=== PATIENT | male | born 1970 | race Caucasian/White ===

== ENCOUNTER 2018-06-07 18:35 | Emergency (ER) | payer BC, OTHER ==
[2018-06-07] MEDS ORDERED: Cyclobenzaprine 10 MG Tab PO ONE (18:36)
--- NOTE | 2018-06-07 18:56 | EDM.PDOC ---
ED HPI GENERAL MEDICAL PROBLEM - General Chief Complaint: Trauma Stated Complaint: fall off roof Time Seen by Provider: 06/07/18 18:50 Source of Information: Reports: Patient History Limitations: Reports: No Limitations - History of Present Illness INITIAL COMMENTS - FREE TEXT/NARRATIVE: Deshawn is a 47 year old male who arrives ambulatory to the ED via private vehicle after falling from a ladder. He reports he was on the upper step of the ladder, near his house roof line, shoveling snow from his roof, when he slipped and fell. He reports he landed on his neck/left side of his back on the deck below. Estimates a 7 foot fall. Trauma code was initiated by nursing staff just prior to my arrival to the ED. He is alert, oriented and ambulatory at time of presentation. GCS 15. Patient and report immediately after falling, patient was "dazed." He reports he felt off balance and "stunned." Does report that he had neck pain initially, as well as left elbow pain. C-collar was applied upon arrival to the ED. Denies any chest pain, lower extremity pain, shortness of breath, abdominal pain, N/V/D. Patient was exposed. Patient is maintaining airway. Taking in full complete sentences. No bleeding. Pulses 2+ throughout. Extremities warm with normal cap refill. Does have small abrasion to right forearm, but no other abnormalities upon exposed examination. He has tenderness to palpation of neck and left elbow. No tenderness to palpation elsewhere. Pelvis is stable. No pain to LE. Onset: Today, Sudden Onset Date: 06/07/18 Onset Time: 18:15 Duration: Constant Location: Reports: Neck, Upper Extremity, Left Quality: Reports: Ache Associated Symptoms: Reports: No Other Symptoms. Denies: Confusion, Chest Pain , Cough, cough w sputum, Diaphoresis, Fever/Chills, Headaches, Loss of Appetite , Malaise, Nausea/Vomiting, Rash, Seizure, Shortness of Breath, Syncope, Weakness Neck Pain Score (Numeric/FACES): 3 - Related Data Allergies Allergy/AdvReac Type Severity Reaction Status Date / Time No Known Allergies Allergy Verified 06/07/18 19:22 Home Meds: Home Meds Cyclobenzaprine [Flexeril] 10 mg PO TID PRN #20 tab 06/07/18 [Rx] Review of Systems - Review of Systems Review Of Systems: See Below Constitutional: Reports: No Symptoms. Denies: Chills, Diaphoresis, Fever, Weakness Eyes: Reports: No Symptoms. Denies: Blurred Vision, Decreased Acuity, Pain, Tunnel Vision, Vision Change Ears: Reports: No Symptoms. Denies: Dizziness, Pain, Tinnitus, Bloody Discharge , Clear Discharge, Serosanguinous Discharge Nose: Reports: No Symptoms. Denies: Clots, Congestion, Epistaxis, Pain Mouth/Throat: Reports: No Symptoms. Denies: Bleeding, Lip Swelling, Tongue Swelling, Loose Teeth Respiratory: Reports: No Symptoms. Denies: Shortness of Breath, Wheezing, Pleuritic Chest Pain, Cough, Sputum, Hemoptysis Cardiovascular: Reports: No Symptoms. Denies: Chest Pain, Edema, Lightheadedness, Palpitations, Syncope GI/Abdominal: Reports: No Symptoms. Denies: Abdominal Pain, Bloody Stool, Diarrhea, Hematemesis, Nausea, Vomiting Genitourinary: Reports: No Symptoms. Denies: Hematuria Musculoskeletal: Reports: Neck Pain, Arm Pain, Back Pain, Joint Pain (left elbow ), Muscle Stiffness Skin: Reports: No Symptoms. Denies: Bruising, Wound Neurological: Reports: Headache. Denies: Confusion, Dizziness, Numbness, Paresthesia, Syncope, Tingling, Tremors, Weakness, Change in Speech, Gait Disturbance Psychiatric: Reports: No Symptoms ED EXAM, GENERAL - Physical Exam Exam: See Below Exam Limited By: No Limitations General Appearance: Alert, WD/WN, No Apparent Distress Eye Exam: Bilateral Eye: EOMI, Normal Fundi, Normal Inspection, PERRL Ears: Normal External Exam, Normal Canal, Hearing Grossly Normal, Normal TMs Nose: Normal Inspection, Normal Mucosa, No Blood Throat/Mouth: Normal Inspection, Normal Lips, Normal Teeth, Normal Gums, Normal Oropharynx, Normal Voice, No Airway Compromise Head: Atraumatic, Normocephalic Neck: Supple, Full Range of Motion, Tender Lateral (muscle tenderness bilaterally ), Other Respiratory/Chest: No Respiratory Distress, Lungs Clear, Normal Breath Sounds, No Accessory Muscle Use, Chest Non-Tender Cardiovascular: Normal Peripheral Pulses, Regular Rate, Rhythm, No Edema, No Gallop, No JVD, No Murmur, No Rub Peripheral Pulses: 2+: Radial (L), Radial (R), Posterior Tibial (L), Posterior Tibial (R), Dorsalis Pedis (L), Dorsalis Pedis (R) GI/Abdominal: Normal Bowel Sounds, Soft, Non-Tender, No Organomegaly, No Distention, No Abnormal Bruit, No Mass Back Exam: Full Range of Motion, Muscle Spasm (mid back). No: Paraspinal Tenderness, Vertebral Tenderness Extremities: Normal Range of Motion, No Pedal Edema, Normal Capillary Refill, Arm Pain (left elbow, tenderness to palpation of lateral epicondyle ). No: Joint Swelling, Leg Pain, Increased Warmth, Redness Neurological: Alert, Oriented, CN II-XII Intact, Normal Cognition, Normal Gait, Normal Reflexes, No Motor/Sensory Deficits Psychiatric: Normal Affect, Normal Mood Skin Exam: Warm, Dry, Other (superficial abrasion to right elbow no tenderness or bleeding) Lymphatic: No Adenopathy Course - Vital Signs Last Recorded V/S: Last Vital Signs Temp 97.9 F 06/07/18 19:32 Pulse 68 06/07/18 19:32 Resp 14 06/07/18 19:32 BP 132/82 06/07/18 19:32 Pulse Ox 98 06/07/18 19:32 - Orders/Labs/Meds Labs: Laboratory Tests 06/07/18 06/07/18 Range/Units 18:52 18:52 WBC 6.8 (5.0-10.0) 10^3/uL RBC 4.94 (4.50-6.00) 10^6/uL Hgb 15.0 (14.0-18.0) g/dL Hct 44.3 (40.0-54.0) % MCV 89.7 (82.0-94.0) fL MCH 30.4 (27.0-32.0) pg MCHC 33.9 (33.0-38.0) g/dL RDW Coeff of Reina 11.9 (11.0-15.0) % Plt Count 224 (150-400) 10^3/uL Neut % (Auto) 58.6 (35-85) % Lymph % (Auto) 32.7 (10-55) % [place] % (Auto) 7.5 (0-16) % Eos % (Auto) 0.9 (0-5) % Baso % (Auto) 0.3 (0-3) % Neut # (Auto) 3.99 (1.80-7.00) 10^3/uL Lymph # (Auto) 2.23 (1.00-4.80) 10^3/uL [place] # (Auto) 0.51 (0.00-0.80) 10^3/uL Eos # (Auto) 0.06 (0.00-0.45) 10^3/uL Baso # (Auto) 0.02 10^3/uL Sodium 140 (136-145) mEq/L Potassium 4.2 (3.5-5.0) mEq/L Chloride 103 (98-106) mEq/L Carbon Dioxide 29 (21-32) mmol/L BUN 15 (7-18) mg/dL Creatinine 1.3 (0.7-1.3) mg/dL Est Cr Clr Drug Dosing TNP Estimated GFR (MDRD) 59 L (>=60) mL/min Glucose 118 H (75-99) mg/dL Calcium 8.7 (8.4-10.1) mg/dL Total Bilirubin 1.5 H (0.0-1.0) mg/dL AST 17 (15-37) U/L ALT 33 (12-78) U/L Alkaline Phosphatase 62 (46-116) U/L Total Protein 7.3 (6.4-8.2) g/dL Albumin 4.1 (3.4-5.0) g/dL Meds: Medications Discontinued Medications Generic Name Dose Route Start Last Admin Trade Name Freq PRN Reason Stop Dose Admin Cyclobenzaprine HCl 1 packet 06/07/18 19:49 06/07/18 19:56 Take Home: Cyclobenzaprine 10 Mg, 4 Tab Pack PO 06/07/18 19:50 1 packet ONETIME ONE Administration Cyclobenzaprine HCl 40 mg 06/07/18 18:36 Flexeril PO 06/07/18 18:37 .STK-MED ONE Diphtheria/Tetanus/Acell Pertussis 0.5 ml 06/07/18 19:42 06/07/18 19:52 Adacel IM 06/07/18 19:43 0.5 ml .ONCE ONE Administration - Radiology Interpretation Free Text/Narrative:: Head and cervical spine CT negative for acute findings. CT Results Date: 06/07/18 CT Results Time: 19:36 - Re-Assessments/Exams Free Text/Narrative Re-Assessment/Exam: Nursing staff attempted PIV start without success. Patient denies significant pain. Labs stable. No need for PIV at this time. No imaging of pelvis warranted, as patient is ambulatory without difficulty or pain. Pelvis is stable and patient has no pain to palpation. CT of head and cervical spine negative. Chest xray negative. Elbow xray shows enthesophyte of dorsum olecranon & left lateral projection. Cervical collar removed. Patient reports mild aching of his neck. Feels muscular related. He has no vertebral tenderness. Reports he feels stiff. Labs all stable. Patient has remained alert and oriented throughout ED stay. GCS 15. VSS. Will discharge home. Departure - Departure Time of Disposition: 19:57 Disposition: Home, Self-Care 01 Condition: Good Clinical Impression: Muscle strain of upper back, Elbow enthesopathy Concussion Qualifiers: Encounter type: initial encounter Loss of consciousness presence/duration: without LOC Qualified Code(s): S06.0X0A - Concussion without loss of consciousness, initial encounter Acute strain of neck muscle Qualifiers: Encounter type: initial encounter Qualified Code(s): S16.1XXA - Strain of muscle, fascia and tendon at neck level, initial encounter - Discharge Information *PRESCRIPTION DRUG MONITORING PROGRAM REVIEWED*: Not Applicable *COPY OF PRESCRIPTION DRUG MONITORING REPORT IN PATIENT MULU: Not Applicable Prescriptions: Cyclobenzaprine [Flexeril] 10 mg PO TID PRN #20 tab PRN Reason: Pain Instructions: Concussion, Adult, [id number], Muscle Strain, [id number] Referrals: PCP,None [Primary Care Provider] - Forms: ED Department Discharge Additional Instructions: 1) Alternate ice and heat to areas of discomfort 2) Rest and take it easy the next few days. Will likely be more sore/stiff tomorrow and the days following. Recommend low stimuli environment for next 72 hours. 3) Alternate Tylenol and ibuprofen as needed for pain 4) Flexeril as needed for muscle spasm/stiffness. This medication can make you drowsy. 5) Follow up if symptoms worsen or do not improve 6) Return to ED for any emergent needs
[2018-06-07 19:09] LABS: CHLORIDE,CL 103 mEq/L (98-106); SODIUM,NA 140 mEq/L (136-145)
[2018-06-07] MEDS ORDERED: Diphtheria,Pertussis(Acell),Tetanus Vaccine 0.5 ML Syringe IM ONE (19:42)
[2018-06-07] MEDS ORDERED: Take Home: Cyclobenzaprine 10 MG Tab, 4 Tab Pack PO ONE (19:49)
== END 2018-06-07 20:15 | disposition home or self-care (01) ==
LOC: CC.ED 18:35
DX: S06.0X0A Concussion without loss of consciousness, initial encounter (principal); S16.1XXA Strain of muscle, fascia and tendon at neck level, initial encounter; S29.012A Strain of muscle and tendon of back wall of thorax, initial encounter; Z23 Encounter for immunization; M77.9 Enthesopathy, unspecified; W11.XXXA Fall on and from ladder, initial encounter
CPT/HCPCS: 36415; 70450; 71046; 72125; 73070-LT; 80053; 85025; 90471; 90715; 99284; A9270-GY

== ENCOUNTER 2023-02-11 08:35 | Emergency (ER) | payer BC ==
[2023-02-11 09:15] LABS: APPEARANCE,URINE CLEAR (CLEAR); BILIRUBIN,URINE SMALL (NEGATIVE); COLOR,URINE YELLOW (YELLOW); GLUCOSE,URINE NEGATIVE (NEGATIVE); KETONES,URINE NEGATIVE (NEGATIVE); LEUKOCYTE ESTERASE,URINE NEGATIVE (NEGATIVE); NITRITE,URINE NEGATIVE (NEGATIVE); OCCULT BLOOD,URINE MODERATE (NEGATIVE); PH,URINE 5.5 (4.5-8.0); PROTEIN,URINE 30 mg/dL (NEGATIVE); UROBILINOGEN,URINE 0.2 EU/dL (0.2-1.0)
[2023-02-11] MEDS ORDERED: Ondansetron 4 MG/2 ML SDV IVPUSH STA ×2 (09:21→10:44)
[2023-02-11] MEDS ORDERED: Ketorolac 30 MG/ML SDV IVPUSH ONE (09:21)
[2023-02-11] MEDS ORDERED: Sodium Chloride 0.9% 1,000 ML IV ONE (09:21)
[2023-02-11 09:26] LABS: BASOPHILS ABSOLUTE AUTO 0.04 10^3/uL (0.00-0.50); BASOPHILS PERCENT AUTO 0.5 % (0-1); EOSINOPHILS ABSOLUTE AUTO 0.06 10^3/uL (0.00-1.50); EOSINOPHILS PERCENT AUTO 0.7 % (0-6); HEMATOCRIT 42.5 % (42.0-52.0); HEMOGLOBIN 14.5 g/dL (14.0-18.0); IMMATURE GRAN ABSOLUTE AUTO 0.03 10^3/uL (0.00-0.49); IMMATURE GRAN PERCENT AUTO 0.4 % (0.0-4.9); LYMPHOCYTES ABSOLUTE AUTO 1.05 10^3/uL (0.60-5.00); LYMPHOCYTES PERCENT AUTO 12.4 % (24-44); MEAN CORPUSCULAR HEMOGLOBIN 30.2 pg (27.0-32.0); MEAN CORPUSCULAR HGB CONC 34.1 g/dL (32.0-36.0); MEAN CORPUSCULAR VOLUME 88.5 fL (83.0-97.0); MONOCYTES PERCENT AUTO 5.9 % (0-10); NEUTROPHILS ABSOLUTE AUTO 6.78 x10^3/uL (1.80-8.00); NEUTROPHILS PERCENT AUTO 80.1 % (41-71); PLATELET COUNT,PLT 214 10^3/uL (150-400); WHITE BLOOD CELL COUNT,WBC 8.5 10^3/uL (4.0-11.0)
[2023-02-11 09:30] LABS: EPITHELIAL CELLS,URINE NOT SEEN /HPF (NOT SEEN); RBC,URINE 0-5 /HPF (0-5); WBC,URINE NOT SEEN /HPF (0-5)
[2023-02-11 09:31] LABS: BACTERIA,URINE OCCASIONAL /HPF (NOT SEEN); MUCUS,URINE FEW /HPF (NOT SEEN)
[2023-02-11 09:46] LABS: ALBUMIN 3.9 g/dL (3.4-5.0); BILIRUBIN TOTAL 1.2 mg/dL (0.0-1.0); C-REACTIVE PROTEIN 0.07 mg/dL (<=0.30); CALCIUM 8.9 mg/dL (8.4-10.1); CREATININE 1.4 mg/dL (0.7-1.3); EST CRCL DRUG DOSING (CG) 69.75 mL/min; MAGNESIUM 1.8 mg/dL (1.8-2.4); POTASSIUM,K 4.7 mEq/L (3.5-5.0); PROTEIN TOTAL,TP 7.3 g/dL (6.4-8.2)
[2023-02-11] MEDS ORDERED: Tamsulosin 0.4 MG Cap.ER PO ONE (10:33)
[2023-02-11] MEDS ORDERED: Morphine 4 MG/ML VIAL IVPUSH ONE (10:44)
[2023-02-11] MEDS ORDERED: Sodium Chloride 0.9% 1,000 ML IV SCH (10:45)
== END 2023-02-11 12:41 | disposition home or self-care (01) ==
LOC: CC.ED 08:35
DX: N23 Unspecified renal colic (principal); N13.2 Hydronephrosis with renal and ureteral calculous obstruction; Z79.899 Other long term (current) drug therapy; Z20.822 Contact with and (suspected) exposure to COVID-19
CPT/HCPCS: 36415; 74176; 80053; 81001; 83735; 84484; 85025; 86140; 93005; 96361; 96374; 96375; 96376; 99284-25; A9270-GY; J1885; J2270; J2405; J7030; U0002